=== PATIENT | female | born 1950 | race Caucasian/White ===

== ENCOUNTER 2017-06-18 08:14 | Inpatient (IN) | payer OTHER ==
[~2017-06-18] VITALS: Ht 157.5 cm; Wt 81.6 kg
[~2017-06-18 08:14] MED LIST: AVAPRO; BENTYL; FOLIC ACID1 MG PO; FOSAMAX; HUMULIN 70/30; INMODIUM; LASIX40 MG PO; LIPITOR; PREVACID
[2017-06-18] MEDS ORDERED: NORVASC10 MG (08:26)
[2017-06-18] MEDS ORDERED: CARDURA XL4 MG (08:27)
[2017-06-18] MEDS ORDERED: LIPITOR20 MG (08:27)
[2017-06-18] MEDS ORDERED: LASIX20 MG (08:28)
[2017-06-18] MEDS ORDERED: AVAPRO300 MG (08:28)
[2017-06-18] MEDS ORDERED: SYNTHROID50 MCG (08:29)
[2017-06-19] MEDS ORDERED: HYDRALAZINE HCL25 MG PO (12:06)
[2017-06-19] MEDS ORDERED: LIPITOR20 MG PO (12:06)
[2017-06-19] MEDS ORDERED: LASIX20 MG PO (12:06)
[2017-06-19] MEDS ORDERED: CARdura 2MG TABLET PO (12:06)
[2017-06-19] MEDS ORDERED: KALEXATE PO (12:06)
[2017-06-19] MEDS ORDERED: HUMULIN 70/30 SUBCUTANEO (12:06)
[2017-06-19] MEDS ORDERED: AMLODIPINE BESY10 MG PO (12:06)
[2017-06-19] MEDS ORDERED: HYDROCORTISO453.6 G1 RECTAL (12:06)
== END 2017-06-19 12:15 | disposition home or self-care (01) | DRG 641 ==
LOC: ER 08:14 → MEDJ 17:24
DX: E87.5 Hyperkalemia (principal); N17.8 Other acute kidney failure; N39.0 Urinary tract infection, site not specified; T88.7XXA Unspecified adverse effect of drug or medicament, initial encounter; T50.995A Adverse effect of other drugs, medicaments and biological substances, initial encounter; Y84.8 Other medical procedures as the cause of abnormal reaction of the patient, or of later complication, without mention of misadventure at the time of the procedure; Y92.098 Other place in other non-institutional residence as the place of occurrence of the external cause; E11.22 Type 2 diabetes mellitus with diabetic chronic kidney disease; I12.9 Hypertensive chronic kidney disease with stage 1 through stage 4 chronic kidney disease, or unspecified chronic kidney disease; N18.3 Chronic kidney disease, stage 3 (moderate); D63.1 Anemia in chronic kidney disease; B96.20 Unspecified Escherichia coli [E. coli] as the cause of diseases classified elsewhere; T78.3XXA Angioneurotic edema, initial encounter